=== PATIENT | male | born 1990 | race Two or more races ===

== ENCOUNTER 2025-01-14 15:46 | Emergency (ER) | payer SELFPAY ==
[~2025-01-14] VITALS: Ht 165.1 cm; Wt 96.2 kg
[2025-01-14 15:51] VITALS: TEMP 99
[2025-01-14 18:34] VITALS: BP 149/100; PULSE 98; RESP 18; O2SAT 95
[2025-01-14] MEDS ORDERED: IBUP-1456 PO (18:52)
--- NOTE | 2025-01-14 18:52 | ED.PDOC ---
Musculoskeletal HPI Comments 34 year old male presents to ER with complaints of right ankle pain x 1 day. Patient states he started experiencing 8/10 pain with associated swelling to right ankle/right foot at 1:30 p.m. today s/p rolling his right ankle inwards in his driveway. Denies use of medications for current symptoms and states he is not able to bear weight on right leg due to right ankle and right foot pain. Denies numbness/tingling or any further symptoms/complaints Chief Complaint: Lower Extremity Time Seen by MD: 18:11 Primary Care Provider: UNKNOWN Reviewed Notes: Nurses Notes, Medications, Allergies Allergies: Coded Allergies: NO KNOWN ALLERGIES (Unverified , 01/14/25) Home Meds Active Scripts Ibuprofen (Ibuprofen) 800 Mg Tab, 1 TAB PO TID PRN, #30 TAB 0 Refills Prov:HAL SUTHERLAND 01/14/25 Information Source: Patient Mode of Arrival: Wheelchair Past Medical History PAST MEDICAL HISTORY: Denies Surgical History: Denies all surgeries Family History Family History: Unknown Social History Smoker: Non-Smoker Alcohol: Denies ETOH Use Drugs: Denies Drug Use Lives In: Home Constitutional: denies: chills, diaphoresis, fatigue, fever, malaise, sweats, weakness, others EENTM: denies: blurred vision, double vision, ear bleeding, ear discharge, ear drainage, ear pain, ear ringing, eye pain, eye redness, hearing loss, mouth pain, mouth swelling, nasal discharge, nose bleeding, nose congestion, nose pain, photophobia, tearing, throat pain, throat swelling, voice changes, others Respiratory: denies: cough, hemoptysis, orthopnea, SOB at rest, shortness of breath, SOB with excertion, stridor, wheezing, others Cardiovascular: denies: chest pain, dizzy spells, diaphoresis, Dyspnea on exertion, edema, irregular heart beat, left arm pain, lightheadedness, palpitations, PND, syncope, others Gastrointestinal: denies: abdomen distended, abdominal pain, blood streaked bowels, constipated, diarrhea, dysphagia, difficulty swallowing, hematemesis, melena, nausea, poor appetite, poor fluid intake, rectal bleeding, rectal pain, vomiting, others Genitourinary: denies: burning, dysuria, flank pain, frequency, hematuria, incontinence, penile discharge, penile sore, pain, testicle pain, testicle swelling, urgency, others Neurological: denies: dizziness, fainting, headache, left sided numbness, left sided weakness, numbness, paresthesia, pre-existing deficit, right sided numbness, right sided weakness, seizure, speech problems, tingling, tremors, weakness, others Musculoskeletal: reports: others (As stated in HPI) Integumetry: reports: others (As stated in HPI) Allergic/Immunocompromised: denies: Difficulty Healing, Frequent Infections, Hives, Itching, others Hematologic/Lymphatic: denies: anemia, blood clots, easy bleeding, easy bruising, swollen glands, others Endocrine: denies: excessive hunger, excessive sweating, excessive thirst, excessive urination, flushing, intolerance to cold, intolerance to heat, unexplained weight gain, unexplained weight loss, others Psychiatric: denies: anxiety, bipolar disorder, depression, hopeless, panic disorder, schizophrenia, sleepless, suicidal, others Physical Exam General Appearance: No Apparent Distress, Obese HEENT: PERRL/EOMI Neck: Full Range of Motion, Non-Tender, Normal Respiratory: Chest Non-Tender, Lungs Clear, No Accessory Muscle Use, No Respiratory Distress, Normal Breath Sounds Cardiovascular: No Murmur, No Gallop, Regular Rate/Rhythm Breast Exam: Deferred Gastrointestinal: NOT DONE Genitalia: Deferred Pelvic: Deferred Rectal: Deferred Extremities: Normal capillary refill, Normal range of motion Musculoskeletal : Extremity Location: Ankle (TTP/mild swelling noted to right medial malleolus. No further skin changes noted. Pulses intact ), Foot (TTP/moderate swelling noted to mid dorsal surface of right foot. No further skin changes noted. Patient able to bear minimum weight on right ankle/right foot. Pulses intact) Neurologic: Alert, No Motor Deficits, Normal Affect, Normal Mood, No Sensory Deficits Cerebellar Function: Normal Reflexes: Normal Skin: Dry, Normal Color, Warm Peripheral Pulses: 2+ dorsalis pedis (R), 2+ dorsalis pedis (L), 2+ Radial (R), 2+ Radial (L), 2+ Brachial (R), 2+ Brachial (L) Lymphatic: No Adenopathy Was a procedure done? Was a procedure done?: No Sedation Sedation?: No Differential Diagnosis EXT Differential Diagnosis: Fracture, Dislocation, Laceration, Neurovascular injury X-Ray, Labs, Meds, VS Vital Signs Date Time Temp Pulse Resp B/P (MAP) Pulse Ox O2 Delivery O2 Flow Rate FiO2 01/14/25 18:34 98 18 149/100 (116) 95 01/14/25 18:34 98 18 95 Room Air 01/14/25 15:51 99.0 104 15 105/73 95 99.0 PATIENT: DANUAT JOSEPHACCT: [id number]: [id number] : 1990 LOC: ER ROOM / BED: / AGE / SEX: 34 / M ADM STATUS: REG ER SERVICE 38 ORDERING PHYSICIAN: HAL SUTHERLAND PROCEDURE(s): RFOOT - R FOOT 3 VIEW XRAY REASON: RIGHT FOOT PAIN ORDER NUMBER(s): [id number], ACCESSION NUMBER(s): [id number] EXAM: XY R FOOT 3 VIEW XRAY, XY R ANKLE 3 VIEW REASON FOR EXAM: RIGHT FOOT PAIN TECHNIQUE: AP, lateral, and oblique views of the right foot and right ankle are submitted for review. COMPARISON: XY R ANKLE 3 VIEW on DOS: 01/14/25 FINDINGS: The bones demonstrate normal mineralization. There is hallux valgus. There is no acute fracture or dislocation. The ankle mortise is intact. The soft tissues are grossly unremarkable. IMPRESSION: No acute fracture or dislocation. ATED BY: ED PATLE MD DICTATED DATE/TIME: 01/14/251918 SIGNED BY: ED PATEL MD SIGNED DATE/TIME: 01/14/251918 CC: PATIENT: DANUTA JOSEPH ACCT: [id number]: [id number] : 1990 LOC: ER ROOM / BED: / AGE / SEX: 34 / M ADM STATUS: REG ER SERVICE 38 ORDERING PHYSICIAN: HAL SUTHERLAND PROCEDURE(s): RANKL - R ANKLE 3 VIEW REASON: RIGHT ANKLE PAIN ORDER NUMBER(s): [id number], ACCESSION NUMBER(s): [id number] EXAM: XY R FOOT 3 VIEW XRAY, XY R ANKLE 3 VIEW REASON FOR EXAM: RIGHT FOOT PAIN TECHNIQUE: AP, lateral, and oblique views of the right foot and right ankle are submitted for review. COMPARISON: XY R ANKLE 3 VIEW on DOS: 01/14/25 FINDINGS: The bones demonstrate normal mineralization. There is hallux valgus. There is no acute fracture or dislocation. The ankle mortise is intact. The soft tissues are grossly unremarkable. IMPRESSION: No acute fracture or dislocation. ATED BY: ED PATEL MD DICTATED DATE/TIME: 01/14/251918 SIGNED BY: ED PATEL MD SIGNED DATE/TIME: 01/14/251918 CC: Right ankle X-ray reviewed Right foot x-ray reviewed Alcides wrap applied Crutches ordered, patient educated on proper use. Was advised to use at all times Patient neurovascularly intact and reported improvement in symptoms prior to discharge Advised on elevation and alternate ice on/off as needed for pain/swelling Advised on re-xray of right ankle/right foot in 1 week if symptoms do not improve Advised to follow up with PCP and orthopedics in 1-2 days Patient verbalized understanding and agreeable with current plan of care Advised to return to ER immediately if symptoms worsen Images Reviewed?: Images reviewed and evaluated by me Time of 1ST Reevaluation: 18:20 Reevaluation 1ST: N/A Patient Education/Counseling: Diagnosis, Treatment, Prognosis, Need For Follow Up Family Education/Counseling: No Family Present Departure 1 Departure Time of Disposition: 18:42 Impression: Primary Impression: Sprain of foot, right Qualified Codes: S93.601A - Unspecified sprain of right foot, initial encounter Additional Impression: Sprain of ankle, right Qualified Codes: S93.401A - Sprain of unspecified ligament of right ankle, initial encounter Disposition: HOME / SELF CARE / HOMELESS Condition: Stable e-Prescriptions Ibuprofen (Ibuprofen) 800 Mg Tab 1 TAB PO TID PRN, #30 TAB 0 Refills Prov: HAL SUTHERLAND 01/14/25 Critical Care Note Critical Care Time?: No Stability Stability form required: No Heart Score Heart Score: Heart Score Response (Comments) Value History N/A 0 EKG N/A 0 Age N/A 0 Risk Factors N/A 0 Troponin N/A 0 Total 0 HAL SUTHERLAND Jan 14, 2025 18:52
--- NOTE | 2025-01-14 19:22 | DVH ---
EXAM: XY R FOOT 3 VIEW XRAY, XY R ANKLE 3 VIEW REASON FOR EXAM: RIGHT FOOT PAIN TECHNIQUE: AP, lateral, and oblique views of the right foot and right ankle are submitted for review. COMPARISON: XY R ANKLE 3 VIEW on DOS: 01/14/25 FINDINGS: The bones demonstrate normal mineralization. There is hallux valgus. There is no acute fra cture or dislocation. The ankle mortise is intact. The soft tissues are grossly unremarkable. IMPRESSION: No acute fracture or dislocation.
== END 2025-01-14 19:40 | disposition home or self-care (01) ==
LOC: ER 15:46
DX: S93.601A Unspecified sprain of right foot, initial encounter (principal); S93.401A Sprain of unspecified ligament of right ankle, initial encounter; Z79.899 Other long term (current) drug therapy; X58.XXXA Exposure to other specified factors, initial encounter; Y93.89 Activity, other specified; Y92.89 Other specified places as the place of occurrence of the external cause; Y99.8 Other external cause status
CPT/HCPCS: 73610; 73630